=== PATIENT | female | born 1970 | race Caucasian/White ===

== ENCOUNTER 2018-05-08 19:14 | Observation (INO) ==
--- NOTE | 2018-05-08 20:03 | Emergency Department Note ---
Disposition Clinical Impression: Pneumonia Qualifiers: Pneumonia type: due to unspecified organism Laterality: bilateral Lung location: lower lobe of lung Qualified Code(s): J18.1 - Lobar pneumonia, unspecified organism Disposition: Admitted As Inpatient Condition: Fair Time of Disposition: 05:18 SOB HPI - General Chief Complaint: ED Shortness of Breath/Dyspnea Stated Complaint: Cough/sore throat/pnuemonia Time Seen by Provider: 05/08/18 19:43 Source: patient, other (Patient caregivers in room acting as co-historian.) Mode of arrival: ambulatory Limitations: other (Patient has a history of developmental disabilities) Nursing Notes Reviewed: Yes Vital Signs Reviewed: Yes - History of Present Illness Patient is a 48-year-old female presenting to the ED with 3 days of shortness of breath and chest pain. Patient is developmentally disabled and patient caregiver is in the room acting as co-historian. Patient also has past medical history of schizophrenia, bipolar disorder, aortic stent placement, mitral valve prolapse. Caregiver states patient lives in apartment with another individual who received care in their home. Patient states her roommate has been sick with a "cold" recently. Patient is a poor historian and can only minimally cooperate with review of systems questioning. Patiently currently admits to dizziness, hot/cold episodes, neck pain, sore throat, chest pain/shortness of breath/yes unproductive cough. Patient denies headache, back pain, abdominal pain/ nausea/vomiting, hematuria, hematochezia. Caregiver states there was recent episode where patient's Depakote, Risperdal came up missing. We will check valproate levels to assure therapeutic levels. Pt Subjective Complaint: shortness of breath, cough, pain with inspiration, chest pain Context: other (Recent sick contacts) Severity: moderate Consistency/Duration: gradually worsening Improves with: nothing Worsens with: exertion, movement, coughing, inspiration Known history of: other (Mitral valve prolapse) Associated symptoms: Reports: chest pain, pain with inspiration, fever, cough. Denies: sputum production, lower extremity pain, parasthesias, nausea/vomiting, abdominal pain Cough present: Yes Cough Description: Voluntary Cough Frequency: Intermittent Sputum production: No - Related Data Home Medications Medication Instructions Recorded Confirmed Cholecalciferol (D-3) [Vitamin D] 2,000 unit PO DAILY 06/22/17 05/08/18 Divalproex (24 HR) [Depakote ER 1,000 mg PO 1400 06/22/17 05/08/18 (24 HR)] Ferrous Sulfate [Iron] 325 mg PO DAILY 06/22/17 05/08/18 Metoprolol [Lopressor] 25 mg PO BID 06/22/17 05/08/18 Quetiapine Fumarate [Seroquel] 200 mg PO TID 06/22/17 05/08/18 RX: Docusate [Colace] 100 mg PO BID 06/22/17 05/08/18 RX: Lactulose 10 gm PO BID 06/22/17 05/08/18 RX: Melatonin 10 mg PO HS 06/22/17 05/08/18 Sertraline [Zoloft] 100 mg PO HS 06/22/17 05/08/18 Atorvastatin Calcium [Lipitor] 20 mg PO HS 05/08/18 05/08/18 Guaifenesin [Mucus Relief] 400 mg PO BID PRN 05/08/18 05/08/18 Levothyroxine [Synthroid] 50 mcg PO QAM 05/08/18 05/08/18 Omeprazole [PriLOSEC] 20 mg PO DAILY 05/08/18 05/08/18 risperiDONE [RisperDAL] 1 mg PO HS 05/08/18 05/08/18 Allergies Allergy/AdvReac Type Severity Reaction Status Date / Time No Known Allergies Allergy Verified 05/08/18 17:35 Review of Systems: As Per HPI Past Medical History - Past Medical History Medical history: Reports: coronary artery disease, dementia, hyperlipidemia, hypertension, thyroid disease, other Surgical history: Reports: angioplasty/stent - Social History Smoking Status: Never smoker Smokeless Tobacco Status: No Alcohol use: Reports: none Drug use: Reports: none Physical Exam - General Limitations: other (Developmentally disabled) General appearance: alert, in no apparent distress - Head Head exam: atraumatic, normocephalic - Eye Eye exam: Present: normal appearance, PERRL, EOMI. Absent: scleral icterus - Chest Chest inspection: Present: normal inspection, symmetric chest wall rise - Respiratory Respiratory exam: Absent: respiratory distress, accessory muscle use, prolonged expiratory phase - Expanded Respiratory Exam Location: rhonchi: Left, Right, Upper, decreased breath sounds: Left, Right, Lower - Cardiovascular Cardiovascular exam: Present: regular rate, normal rhythm, normal heart sounds, +S1, +S2. Absent: JVD, +S3, +S4 - Abdominal Exam Abdominal exam: Present: soft, Non-Tender, normal bowel sounds. Absent: distention, guarding, rebound, rigidity - Extremities Exam Extremities exam: Present: pedal edema (1+ pitting edema noted in bilateral lower extremities. This stated to be new) - Neurological Exam Neurological exam: Present: alert, oriented X3 - Psychiatric Psychiatric exam: Present: normal affect, normal mood - Skin Skin exam: Present: warm, dry, intact, normal color. Absent: cyanosis, diaphoresis Course Course Narrative: Patient received a chest x-ray at urgent care earlier today and was sent directly from that facility. Chest x-ray concerning for atelectasis and/or scarring. In the setting of no pulmonary interventions, or history of respiratory disease, is concerning for pneumonia. Patient history of coronary artery disease with aortic stent placement, mitral valve prolapse, and new onset pitting edema is concerning for possible CHF exacerbation. Or superimposition of the tube. CBC, CMP, troponin, BNP, EKG/old EKG be obtained to further assess for potential underlying etiologies. We will check valproate level to assure therapeutic levels. - Reevaluation(s) Reevaluation #1: Patient meets sepsis criteria with tachycardia, tachypnea, and a presumed source of infection in the lung We will hold fluids at this time due to concern over fluid overload in the setting of potential CHF exacerbation Lactic acid and blood cultures drawn 750 mg levofloxacin IV started in ED Time: 20:44 Vital Signs Temperature 98.8 F 05/08/18 19:16 Pulse Rate 129 05/08/18 19:16 Respiratory Rate 26 05/08/18 19:16 Blood Pressure 151/85 05/08/18 19:16 O2 Sat by Pulse Oximetry 93 05/08/18 19:16 Temperature 98.2 F 05/09/18 04:09 Pulse Rate 113 05/09/18 04:09 Respiratory Rate 18 05/09/18 04:09 Blood Pressure 133/84 05/09/18 04:09 O2 Sat by Pulse Oximetry 91 05/09/18 04:09 Oxygen Delivery Oxygen Delivery Nasal Cannula Shortness of Breath/Dyspnea - MDM Narrative Medical decision making narrative: CTA of the chest negative for pulmonary embolism. Findings of bilateral lower lobe consolidations consistent with diagnosis of pneumonia. Patient started on 750 mg levofloxacin in the ED. We will obtain influenza screening in order to ascertain possible need for contact precautions while in hospital. Clinical, laboratory and imaging results unlikely for acute CHF exacerbation. We will begin 1 L bolus normal saline for treatment of sepsis. Patient will be admitted to the hospital for further evaluation and management for bilateral pneumonia with Dr. Rouse accepting admission. - Lab Data Lab results reviewed: Yes I reviewed the patient's lab results. Result diagrams: 05/09/18 03:14 05/09/18 03:14 Lab Results 05/08/18 05/08/18 05/08/18 Range/Units 20:23 20:23 20:23 WBC 7.6 (4.3-11.1) K/mcL RBC 3.74 L (3.82-4.97) M/mcL Hgb 11.9 (11.5-15.4) g/dL Hct 35.6 (35.3-44.9) % MCV 95.2 (83.0-100.0) fL MCH 31.8 (28.0-33.3) pg MCHC 33.4 (31.6-35.5) g/dL RDW 13.5 (11.5-14.5) % Plt Count 164 (140-400) K/mcL MPV 10.1 (9.4-12.4) fL Immature Gran % 0.4 (0-4) % Seg Neutrophils % 69.6 % Lymphocytes % 16.9 % Monocytes % 11.0 % Eosinophils % 1.7 % Basophils % 0.4 % Neutrophils # 5.3 (1.6-8.9) K/mcL Lymphocytes # 1.3 (0.6-4.6) K/mcL Monocytes # 0.8 (0.0-1.3) K/mcL Eosinophils # 0.1 (0.0-0.6) K/mcL Basophils # 0.0 (0.0-0.2) K/mcL D-Dimer (0-500) ng/mLFEU Sodium 136 (136-145) mEq/L Potassium 3.9 (3.5-5.1) mEq/L Chloride 100 (98-107) mEq/L Carbon Dioxide 26 (23-29) mEq/L BUN 14 (6-20) mg/dL Creatinine 0.72 (0.60-1.20) mg/dL Est GFR ( Amer) > 60 (> 60) Est GFR (Non-Af Amer) > 60 (> 60) BUN/Creatinine Ratio 19 (6-26) Glucose 136 H (70-105) mg/dL Calculated Osmolality 285 (280-300) Lactic Acid (0.5-2.2) mmol/L Calcium 9.2 (8.6-10.3) mg/dL Total Bilirubin 0.4 (0.3-1.0) mg/dL AST 11 L (13-39) Units/L ALT 13 (7-52) Units/L Alkaline Phosphatase 70 (34-104) Units/L Troponin I < 0.03 (< 0.04) ng/mL B-Natriuretic Peptide 83 (Less than 100) pg/mL Serum Total Protein 7.3 (6.4-8.9) g/dL Albumin 4.1 (3.5-5.7) g/dL Globulin 3.2 (2.4-3.5) g/dL Albumin/Globulin Ratio 1.3 (1.1-2.2) 05/08/18 05/08/18 Range/Units 20:23 20:57 WBC (4.3-11.1) K/mcL RBC (3.82-4.97) M/mcL Hgb (11.5-15.4) g/dL Hct (35.3-44.9) % MCV (83.0-100.0) fL MCH (28.0-33.3) pg MCHC (31.6-35.5) g/dL RDW (11.5-14.5) % Plt Count (140-400) K/mcL MPV (9.4-12.4) fL Immature Gran % (0-4) % Seg Neutrophils % % Lymphocytes % % Monocytes % % Eosinophils % % Basophils % % Neutrophils # (1.6-8.9) K/mcL Lymphocytes # (0.6-4.6) K/mcL Monocytes # (0.0-1.3) K/mcL Eosinophils # (0.0-0.6) K/mcL Basophils # (0.0-0.2) K/mcL D-Dimer 892 H (0-500) ng/mLFEU Sodium (136-145) mEq/L Potassium (3.5-5.1) mEq/L Chloride (98-107) mEq/L Carbon Dioxide (23-29) mEq/L BUN (6-20) mg/dL Creatinine (0.60-1.20) mg/dL Est GFR ( Amer) (> 60) Est GFR (Non-Af Amer) (> 60) BUN/Creatinine Ratio (6-26) Glucose (70-105) mg/dL Calculated Osmolality (280-300) Lactic Acid 1.9 (0.5-2.2) mmol/L Calcium (8.6-10.3) mg/dL Total Bilirubin (0.3-1.0) mg/dL AST (13-39) Units/L ALT (7-52) Units/L Alkaline Phosphatase (34-104) Units/L Troponin I (< 0.04) ng/mL B-Natriuretic Peptide (Less than 100) pg/mL Serum Total Protein (6.4-8.9) g/dL Albumin (3.5-5.7) g/dL Globulin (2.4-3.5) g/dL Albumin/Globulin Ratio (1.1-2.2) - Radiology Data Radiology results reviewed: Yes I reviewed the patient's radiology results. Chest CTA 05/08/18 21:27 IMPRESSION: Study is very limited for pulmonary embolism. No central or lobar emboli suspected. Central bronchial wall thickening as well as centrilobular ill-defined punctate nodules, greatest in the right upper lobe. Findings likely represent infectious airways disease. Mild consolidation within posterior lower lobes, atelectasis or pneumonia. D/ / Jeanie Sandhu Cha, MD / Jeanie Sandhu Cha, MD Interpreting Provider: Jeanie Sandhu Cha, MD Chest CTA 05/08/18 21:27 IMPRESSION: Study is very limited for pulmonary embolism. No central or lobar emboli suspected. Central bronchial wall thickening as well as centrilobular ill-defined punctate nodules, greatest in the right upper lobe. Findings likely represent infectious airways disease. Mild consolidation within posterior lower lobes, atelectasis or pneumonia. D/ / Jeanie Sandhu Cha, MD / Jeanie Sandhu Cha, MD Interpreting Provider: Jeanie Sandhu Cha, MD - EKG Data EKG attestation: Yes I reviewed and interpreted this EKG. EKG results narrative: Patient EKG shows a sinus tachycardia with a ventricular rate of 110 bpm, NE interval of 133 ms, QRS duration of 80 ms, QT/QTc interval of 316/428 ms respectively. There are no significant ST segment elevations or depressions, pathologic Q waves, abnormal T-wave inversions, or any other signs of acute ischemic change. At this time there is no previous EKG available for comparison.
[2018-05-08 20:46] LABS: Basophils % 0.4 %; Eosinophils # 0.1 K/mcL (0.0-0.6); Eosinophils % 1.7 %; Hematocrit 35.6 % (35.3-44.9); Hemoglobin 11.9 g/dL (11.5-15.4); Immature Granulocytes % 0.4 % (0-4); Lymphocytes # 1.3 K/mcL (0.6-4.6); Lymphocytes % 16.9 %; Mean Corpuscular HGB Conc 33.4 g/dL (31.6-35.5); Mean Corpuscular Hemoglobin 31.8 pg (28.0-33.3); Mean Corpuscular Volume 95.2 fL (83.0-100.0); Mean Platelet Volume 10.1 fL (9.4-12.4); Monocytes # 0.8 K/mcL (0.0-1.3); Neutrophils # 5.3 K/mcL (1.6-8.9); Platelet Count 164 K/mcL (140-400); Red Blood Count 3.74 M/mcL (3.82-4.97); Red Cell Distribution Width 13.5 % (11.5-14.5); Segmented Neutrophils % 69.6 %
[2018-05-08] MEDS ORDERED: Levofloxacin 750 MG/150 ML 750 MG/150 ML BAG IVPB ONE (20:47)
[2018-05-08] MEDS ORDERED: Ipratropium/Albuterol Neb 3 ML IH ONE (21:04)
[2018-05-08 21:07] LABS: Troponin I < 0.03 ng/mL (< 0.04)
[2018-05-08 21:08] LABS: Alanine Aminotransferase 13 Units/L (7-52); Albumin 4.1 g/dL (3.5-5.7); Albumin/Globulin Ratio 1.3 (1.1-2.2); Alkaline Phosphatase 70 Units/L (34-104); Aspartate Amino Transferase 11 Units/L (13-39); BUN/Creatinine Ratio 19 (6-26); Bilirubin,Total 0.4 mg/dL (0.3-1.0); Blood Urea Nitrogen 14 mg/dL (6-20); Calcium 9.2 mg/dL (8.6-10.3); Carbon Dioxide 26 mEq/L (23-29); Chloride 100 mEq/L (98-107); Globulin 3.2 g/dL (2.4-3.5); Glucose 136 mg/dL (70-105); Osmolality,Calculated 285 (280-300); Potassium 3.9 mEq/L (3.5-5.1); Sodium 136 mEq/L (136-145); Total Protein 7.3 g/dL (6.4-8.9); eGFR For Non-African Americans > 60 (> 60)
[2018-05-08] MEDS ORDERED: Isovue-370 500 ML BOTTLE IVP ONE (21:27)
--- NOTE | 2018-05-08 22:43 | Emergency Department Note ---
Disposition Clinical Impression: Pneumonia Qualifiers: Pneumonia type: due to unspecified organism Laterality: bilateral Lung location: lower lobe of lung Qualified Code(s): J18.1 - Lobar pneumonia, unspecified organism Disposition: Admitted As Inpatient Condition: Fair General Adult HPI - General Chief complaint: ED Shortness of Breath/Dyspnea Stated complaint: Cough/sore throat/pnuemonia Time Seen by Provider: 05/08/18 19:43 Source: patient, other (Patient caregivers in room acting as co-historian.) Mode of arrival: ambulatory Limitations: other (Developmentally disabled) Nursing Notes Reviewed: Yes Vital Signs Reviewed: Yes - History of Present Illness Pain Scale: 0 - Related Data Home Medications Medication Instructions Recorded Confirmed Cholecalciferol (D-3) [Vitamin D] 2,000 unit PO DAILY 06/22/17 05/08/18 Divalproex (24 HR) [Depakote ER 1,000 mg PO 1400 06/22/17 05/08/18 (24 HR)] Docusate [Colace] 100 mg PO BID 06/22/17 05/08/18 Ferrous Sulfate [Iron] 325 mg PO DAILY 06/22/17 05/08/18 Lactulose 10 gm PO BID 06/22/17 05/08/18 Melatonin 10 mg PO HS 06/22/17 05/08/18 Metoprolol [Lopressor] 25 mg PO BID 06/22/17 05/08/18 Quetiapine Fumarate [Seroquel] 200 mg PO TID 06/22/17 05/08/18 Sertraline [Zoloft] 100 mg PO HS 06/22/17 05/08/18 Atorvastatin Calcium [Lipitor] 20 mg PO HS 05/08/18 05/08/18 Guaifenesin [Mucus Relief] 400 mg PO BID PRN 05/08/18 05/08/18 Levothyroxine [Synthroid] 50 mcg PO QAM 05/08/18 05/08/18 Omeprazole [PriLOSEC] 20 mg PO DAILY 05/08/18 05/08/18 risperiDONE [RisperDAL] 1 mg PO HS 05/08/18 05/08/18 Allergies Allergy/AdvReac Type Severity Reaction Status Date / Time No Known Allergies Allergy Verified 05/08/18 17:35 Past Medical History - Past Medical History Medical history: Reports: coronary artery disease, dementia, hyperlipidemia, hypertension, thyroid disease, other Surgical history: Reports: angioplasty/stent - Social History Smoking Status: Never smoker Smokeless Tobacco Status: No Alcohol use: Reports: none Drug use: Reports: none Physical Exam - General Limitations: other (Developmentally disabled) General appearance: alert, in no apparent distress Course Vital Signs Temperature 98.8 F 05/08/18 19:16 Pulse Rate 129 05/08/18 19:16 Respiratory Rate 26 05/08/18 19:16 Blood Pressure 151/85 05/08/18 19:16 O2 Sat by Pulse Oximetry 93 05/08/18 19:16 Temperature 98.2 F 05/09/18 04:09 Pulse Rate 113 05/09/18 04:09 Respiratory Rate 18 05/09/18 04:09 Blood Pressure 133/84 05/09/18 04:09 O2 Sat by Pulse Oximetry 91 05/09/18 04:09 Oxygen Delivery Oxygen Delivery Nasal Cannula Medical Decision Making - Medical Records Medical records reviewed: Yes I reviewed the patient's medical records. - Lab Data Lab results reviewed: Yes I reviewed the patient's lab results. Result diagrams: 05/09/18 03:14 05/09/18 03:14 Lab Results 05/08/18 05/08/18 05/08/18 Range/Units 20:23 20:23 20:23 WBC 7.6 (4.3-11.1) K/mcL RBC 3.74 L (3.82-4.97) M/mcL Hgb 11.9 (11.5-15.4) g/dL Hct 35.6 (35.3-44.9) % MCV 95.2 (83.0-100.0) fL MCH 31.8 (28.0-33.3) pg MCHC 33.4 (31.6-35.5) g/dL RDW 13.5 (11.5-14.5) % Plt Count 164 (140-400) K/mcL MPV 10.1 (9.4-12.4) fL Immature Gran % 0.4 (0-4) % Seg Neutrophils % 69.6 % Lymphocytes % 16.9 % Monocytes % 11.0 % Eosinophils % 1.7 % Basophils % 0.4 % Neutrophils # 5.3 (1.6-8.9) K/mcL Lymphocytes # 1.3 (0.6-4.6) K/mcL Monocytes # 0.8 (0.0-1.3) K/mcL Eosinophils # 0.1 (0.0-0.6) K/mcL Basophils # 0.0 (0.0-0.2) K/mcL D-Dimer (0-500) ng/mLFEU Sodium 136 (136-145) mEq/L Potassium 3.9 (3.5-5.1) mEq/L Chloride 100 (98-107) mEq/L Carbon Dioxide 26 (23-29) mEq/L BUN 14 (6-20) mg/dL Creatinine 0.72 (0.60-1.20) mg/dL Est GFR ( Amer) > 60 (> 60) Est GFR (Non-Af Amer) > 60 (> 60) BUN/Creatinine Ratio 19 (6-26) Glucose 136 H (70-105) mg/dL Calculated Osmolality 285 (280-300) Lactic Acid (0.5-2.2) mmol/L Calcium 9.2 (8.6-10.3) mg/dL Total Bilirubin 0.4 (0.3-1.0) mg/dL AST 11 L (13-39) Units/L ALT 13 (7-52) Units/L Alkaline Phosphatase 70 (34-104) Units/L Troponin I < 0.03 (< 0.04) ng/mL B-Natriuretic Peptide 83 (Less than 100) pg/mL Serum Total Protein 7.3 (6.4-8.9) g/dL Albumin 4.1 (3.5-5.7) g/dL Globulin 3.2 (2.4-3.5) g/dL Albumin/Globulin Ratio 1.3 (1.1-2.2) 05/08/18 05/08/18 Range/Units 20:23 20:57 WBC (4.3-11.1) K/mcL RBC (3.82-4.97) M/mcL Hgb (11.5-15.4) g/dL Hct (35.3-44.9) % MCV (83.0-100.0) fL MCH (28.0-33.3) pg MCHC (31.6-35.5) g/dL RDW (11.5-14.5) % Plt Count (140-400) K/mcL MPV (9.4-12.4) fL Immature Gran % (0-4) % Seg Neutrophils % % Lymphocytes % % Monocytes % % Eosinophils % % Basophils % % Neutrophils # (1.6-8.9) K/mcL Lymphocytes # (0.6-4.6) K/mcL Monocytes # (0.0-1.3) K/mcL Eosinophils # (0.0-0.6) K/mcL Basophils # (0.0-0.2) K/mcL D-Dimer 892 H (0-500) ng/mLFEU Sodium (136-145) mEq/L Potassium (3.5-5.1) mEq/L Chloride (98-107) mEq/L Carbon Dioxide (23-29) mEq/L BUN (6-20) mg/dL Creatinine (0.60-1.20) mg/dL Est GFR ( Amer) (> 60) Est GFR (Non-Af Amer) (> 60) BUN/Creatinine Ratio (6-26) Glucose (70-105) mg/dL Calculated Osmolality (280-300) Lactic Acid 1.9 (0.5-2.2) mmol/L Calcium (8.6-10.3) mg/dL Total Bilirubin (0.3-1.0) mg/dL AST (13-39) Units/L ALT (7-52) Units/L Alkaline Phosphatase (34-104) Units/L Troponin I (< 0.04) ng/mL B-Natriuretic Peptide (Less than 100) pg/mL Serum Total Protein (6.4-8.9) g/dL Albumin (3.5-5.7) g/dL Globulin (2.4-3.5) g/dL Albumin/Globulin Ratio (1.1-2.2) - Radiology Data Radiology results reviewed: Yes I reviewed the patient's radiology results. Chest CTA 05/08/18 21:27 IMPRESSION: Study is very limited for pulmonary embolism. No central or lobar emboli suspected. Central bronchial wall thickening as well as centrilobular ill-defined punctate nodules, greatest in the right upper lobe. Findings likely represent infectious airways disease. Mild consolidation within posterior lower lobes, atelectasis or pneumonia. D/ / Jeanie Sandhu Cha, MD / Jeanie Sandhu Cha, MD Interpreting Provider: Jeanie Sandhu Cha, MD - EKG Data EKG #1 EKG attestation: Yes I reviewed and interpreted this EKG. EKG results narrative: EKG shows sinus tachycardia with a rate of 110. Probable left atrial enlargement. No ST segment elevation or depression. No arrhythmia or ectopy. Critical Care Time Critical Care Time: Yes Total Critical Care Time: 35 Attestation: Critical care performed: Time is exclusive of separately billable procedures. Time includes: direct patient care, patient reassessment, coordination of patient care, interpretation of data (laboratory data, radiology data, and respiratory data), review of patient's medical records, medical consultation and documentation of patient care. Procedures included in critical care time: Procedures excluded from critical care time: Attestation Statement - Attestation Attestation: I, Mike Glasgow MD, personally evaluated this patient and discussed their management with the resident physician. I reviewed the resident's note and agree with the documented findings, medical decision making, and plan of care. 48-year-old female with history of MRDD who lives in an apartment with a roommate. 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 Patient developed a cough 3 days ago. [employer] reports they got her some cough drops which did not seem to help. Today she started complaining of a sore throat so they took her to an urgent care. She had a chest x-ray and they were concerned about pneumonia and referred her to the emergency department. There has not been any fever. Some mild shortness of breath. No prior history of breathing problems. On examination patient is a well-developed well-nourished female in no acute distress. She is alert and cooperative. No cyanosis or diaphoresis. Breath sounds are equal bilaterally. Patient does have expiratory wheezes and some rales over the left upper anteriorly. Heart regular with a mild tachycardia. Abdomen soft and nontender. There is 1+ pedal edema bilaterally. EKG shows sinus tachycardia with a ventricular rate of 110. No ST segment elevation or depression. No ectopy. CTA of the chest showed no definite pulmonary embolism but scattered areas consistent with pneumonia. Labs reviewed. Antibiotics initiated. Blood cultures obtained. The hospitalist, Dr. Rouse, was consulted and accepted admission of the patient.
[2018-05-08] MEDS ORDERED: 0.9 % Sodium Chloride 1,000 ML IVC ONE (22:55)
--- NOTE | 2018-05-09 01:50 | Internal Med History&Physical ---
Date of Encounter: 05/09/18 Time of Encounter: 01:48 Internal Medicine - H&P: HPI Chief complaint: Cough History of present illness: Ms. Garrett is a 48 year old female with a past medical history of MRDD who presents with 3 day history of cough patient currently resides in an apartment with a roommate and has a 24-hour sawdust drier. Her sawdust drier reports that the treated her cough some cough drops which did not seem to help. Patient reported sore throat earlier today so she was taken to urgent care where a chest x-ray was concerning for pneumonia. No reports of fever, chills or chest pain. Initial vitals on admission were Laboratory workup was notable for a normal white count, however, patient was noted to have an elevated d-dimer of 892. CT scan Was limited but did not show any central or lobar emboli. There was concern for possible pneumonia versus infectious airway disease. Patient was started on levofloxacin in the ED. Past Med Surg Social Fam HX - Past Medical History Medical history: coronary artery disease, dementia, hyperlipidemia, hypertension, thyroid disease, other Additional medical history: MRDD. TBI. MVP - Past Surgical History Surgical History: angioplasty/stent Additional surgical history: aortic stent - Social History Smoking Status: Never smoker Smokeless Tobacco Status: No Alcohol use: none Drug use: none Internal Medicine - H&P: Meds Cholecalciferol (D-3) [Vitamin D] 2,000 unit PO DAILY 06/22/17 [History] Divalproex (24 HR) [Depakote ER (24 HR)] 1,000 mg PO 1400 06/22/17 [History] Docusate [Colace] 100 mg PO BID 06/22/17 [History] Ferrous Sulfate [Iron] 325 mg PO DAILY 06/22/17 [History] Lactulose 10 gm PO BID 06/22/17 [History] Melatonin 10 mg PO HS 06/22/17 [History] Metoprolol [Lopressor] 25 mg PO BID 06/22/17 [History] Quetiapine Fumarate [Seroquel] 200 mg PO TID 06/22/17 [History] Sertraline [Zoloft] 100 mg PO HS 06/22/17 [History] Atorvastatin Calcium [Lipitor] 20 mg PO HS 05/08/18 [History] Guaifenesin [Mucus Relief] 400 mg PO BID PRN 05/08/18 [History] Levothyroxine [Synthroid] 50 mcg PO QAM 05/08/18 [History] Omeprazole [PriLOSEC] 20 mg PO DAILY 05/08/18 [History] risperiDONE [RisperDAL] 1 mg PO HS 05/08/18 [History] Allergy/AdvReac Type Severity Reaction Status Date / Time No Known Allergies Allergy Verified 05/08/18 17:35 All Systems PM: A 10-system review of systems was performed and is negative for pertinent findings except as documented above in the HPI. - Constitutional Constitutional: no chills, no fever(s), no night sweats - EENT Eyes: no change in vision, no discharge, no pain, no photophobia Ears: no ear discharge, no ear pain, no tinnitus Nose, mouth and throat: no dysphagia, no nasal discharge, no neck pain, no sore throat - Cardiovascular Cardiovascular ROS IM: no chest pain, no diaphoresis, no dyspnea, no lightheadedness, no palpitations, no syncope - Respiratory Respiratory: no cough, no dyspnea, no wheezing, no excessive phlegm production - Gastrointestinal Gastrointestinal: no abdominal pain, no diarrhea, no hematemesis, no hematochezia, no melena, no nausea, no vomiting - Genitourinary Genitourinary: no change in urinary stream, no dysuria, no flank pain, no hematuria - Musculoskeletal Musculoskeletal ROS IM: no numbness, no tingling - Integumentary Integumentary IM: no rash, no unusual bruising - Neurological Neurological ROS: no confusion, no convulsions, no focal weakness, no numbness, no tingling, no tremor(s) - Hematologic/Lymphatic Hematologic/Lymphatic: no easy bruising - Constitutional Vitals: Temp Pulse Resp BP Pulse Ox 98.0 F 104 16 119/69 90 05/09/18 00:45 05/09/18 00:45 05/09/18 00:45 05/09/18 00:45 05/09/18 00:45 Exam: General: Alert and oriented Skin:Normal color, no rash, no lesions. HEENT:EOM, pupils equal, round and reactive. Cardiovascular:Normal S1 & S2, no rubs, murmurs or gallops. No JVD. Pulse regular. Lungs:Normal breath sounds, no wheezes or crackles. Abdomen:Soft, non-tender, no rigidity. Extremities:No deformity, no edema or tenderness, no joint swelling or clubbing. Neurological:Normal cognition and motor skills. Pulses:Carotid and radial pulses normal +2. Rest of the physical exam is non contributory Internal Med - H&P Results - Labs CBC & Chem 7: 05/09/18 03:14 05/09/18 03:14 Labs: Short CBC 05/08/18 Range/Units 20:23 WBC 7.6 (4.3-11.1) K/mcL Hgb 11.9 (11.5-15.4) g/dL Hct 35.6 (35.3-44.9) % Plt Count 164 (140-400) K/mcL Neutrophils # 5.3 (1.6-8.9) K/mcL BMP 05/08/18 20:23 Sodium 136 Potassium 3.9 Chloride 100 Carbon Dioxide 26 BUN 14 Creatinine 0.72 Glucose 136 H Calcium 9.2 Cardiac Enzymes 05/08/18 Range/Units 20:23 Troponin I < 0.03 (< 0.04) ng/mL Liver Function 05/08/18 Range/Units 20:23 Total Bilirubin 0.4 (0.3-1.0) mg/dL AST 11 L (13-39) Units/L ALT 13 (7-52) Units/L Alkaline Phosphatase 70 (34-104) Units/L Albumin 4.1 (3.5-5.7) g/dL - Impressions ITS Impressions Chest CTA 05/08/18 21:27 IMPRESSION: Study is very limited for pulmonary embolism. No central or lobar emboli suspected. Central bronchial wall thickening as well as centrilobular ill-defined punctate nodules, greatest in the right upper lobe. Findings likely represent infectious airways disease. Mild consolidation within posterior lower lobes, atelectasis or pneumonia. D/ / Jeanie Sandhu Cha, MD / Jeanie Sandhu Cha, MD Interpreting Provider: Jeanie Sandhu Cha, MD - Assessment and plan (1) Community acquired pneumonia Current Visit: Yes Status: Acute Assessment and plan: Patient admitted for 3 day history of cough and sore throat. Patient mildly tachycardic requiring 3 L nasal cannula and maintaining saturation in the low 90s. Lung sounds rhonchorous in the upper lung bauman. No evidence of leukocytosis on labs. Chest x-ray performed at urgent care was concerning for pneumonia. CTA performed here shows no evidence of PE with central bronchial wa ll thickening as well as centrilobular ill-defined nodules likely representing infectious airway disease. There was mild consolidation within the posterior lower lobes possibly secondary to atelectasis versus pneumonia. Patient received levofloxacin in the ED. Patient stable from a respiratory standpoint. -Continue levofloxacin for possible community-acquired pneumonia versus acute bronchitis. -Follow-up blood cultures. -Follow-up respiratory infectious panel Qualifiers: Lung location: unspecified part of lung Qualified Code(s): J18.9 - Pneumonia, unspecified organism (2) Cough Current Visit: No Status: Acute Assessment and plan: Nonproductive cough. Treat symptomatically. (3) Hypothyroidism Current Visit: Yes Status: Acute Assessment and plan: Continue levothyroxin Qualifiers: Hypothyroidism type: unspecified Qualified Code(s): E03.9 - Hypothyroidism, unspecified (4) Depression Current Visit: Yes Status: Acute Assessment and plan: Continue with sertraline Qualifiers: Depression Type: unspecified Qualified Code(s): F32.9 - Major depressive disorder, single episode, unspecified (5) DVT prophylaxis Current Visit: Yes Status: Acute Assessment and plan: Subcutaneous heparin - Time Spent With Patient Total time spent is greater than 50% in coordination of care (as documented) at patient's floor/unit and/or counseling patient:
[2018-05-09] MEDS ORDERED: Naloxone 0.4 MG/ML INJ IVP PRN (01:57)
[2018-05-09] MEDS ORDERED: GuaiFENesin Liq 200 MG/10 ML UDC PO PRN (03:39)
[2018-05-09 04:19] LABS: Basophils % 0.3 %; Eosinophils # 0.1 K/mcL (0.0-0.6); Eosinophils % 1.8 %; Immature Granulocytes % 0.4 % (0-4); Lymphocytes # 1.3 K/mcL (0.6-4.6); Lymphocytes % 19.1 %; Mean Corpuscular HGB Conc 32.4 g/dL (31.6-35.5); Mean Corpuscular Hemoglobin 31.2 pg (28.0-33.3); Mean Corpuscular Volume 96.3 fL (83.0-100.0); Mean Platelet Volume 10.3 fL (9.4-12.4); Monocytes # 0.7 K/mcL (0.0-1.3); Monocytes % 10.5 %; Neutrophils # 4.7 K/mcL (1.6-8.9); Platelet Count 169 K/mcL (140-400); Red Blood Count 3.53 M/mcL (3.82-4.97); Red Cell Distribution Width 13.7 % (11.5-14.5); Segmented Neutrophils % 67.9 %
[2018-05-09 04:39] LABS: Alanine Aminotransferase 11 Units/L (7-52); Albumin 3.7 g/dL (3.5-5.7); Albumin/Globulin Ratio 1.2 (1.1-2.2); Alkaline Phosphatase 66 Units/L (34-104); Aspartate Amino Transferase 11 Units/L (13-39); BUN/Creatinine Ratio 17 (6-26); Bilirubin,Total 0.3 mg/dL (0.3-1.0); Blood Urea Nitrogen 11 mg/dL (6-20); Calcium 8.6 mg/dL (8.6-10.3); Carbon Dioxide 27 mEq/L (23-29); Chloride 103 mEq/L (98-107); Glucose 114 mg/dL (70-105); Osmolality,Calculated 286 (280-300); Potassium 4.1 mEq/L (3.5-5.1); Sodium 138 mEq/L (136-145); Total Protein 6.7 g/dL (6.4-8.9); eGFR For Non-African Americans > 60 (> 60)
[2018-05-09 05:01] LABS: Adenovirus Not Detected (Not Detect); Bordetella Pertussis Not Detected (Not Detect); Chlamydophila pneumoniae Not Detected (Not Detect); Coronavirus 229E Not Detected (Not Detect); Coronavirus HKU1 Not Detected (Not Detect); Coronavirus NL63 Not Detected (Not Detect); Coronavirus OC43 Not Detected (Not Detect); Human Metapneumovirus Not Detected (Not Detect); Human Rhinovirus/Enterovirus Not Detected (Not Detect); Influenza A Subtype 2009 H1 Not Detected (Not Detect); Influenza A Untypeable Not Detected (Not Detect); Influenza B Not Detected (Not Detect); Mycoplasma pneumoniae DETECTED (Not Detect); Parainfluenza Virus 1 Not Detected (Not Detect); Parainfluenza Virus 2 Not Detected (Not Detect); Parainfluenza Virus 3 Not Detected (Not Detect); Parainfluenza Virus 4 Not Detected (Not Detect); Respiratory Syncytial Virus Not Detected (Not Detect)
[2018-05-09] MEDS: *HR* Heparin 5,000 UNIT/ML VIAL SQ SCH ×3 (06:00→20:26)
[2018-05-09] MEDS: Lactulose Oral Soln 20 GM/30 ML UDC PO SCH ×2 (08:12→20:26)
[2018-05-09] MEDS: Cholecalciferol (D-3) 1,000 UNIT TABLET PO SCH (08:13)
[2018-05-09] MEDS: Levofloxacin 750 MG/150 ML 750 MG/150 ML BAG IVPB SCH (08:13)
--- NOTE | 2018-05-09 09:18 | Electrocardiograph Report ---
[place] [id number] Test Date: 2018-05-08 Pat Name: Marlena Garrett Department: EXAMC3 Room: 2NE18 Gender: F Lean Sensei: : 1970 Requested By: Justin Robledo Order Number: [id number] Reading MD: Pierce Sneed Measurements Intervals [place] Rate: 110 P: 54 SD: 133 QRS: 53 QRSD: 80 T: 7 QT: 316 QTc: 428 Interpretive Statements Sinus tachycardia Probable left atrial enlargement Electronically Signed On 05-09-2018 9:16:34 EST by Pierce Sneed
[2018-05-09] MEDS ORDERED: Ipratropium/Albuterol Neb 3 ML IH ONE (10:23)
[2018-05-09] MEDS ORDERED: Ipratropium/Albuterol Neb 3 ML IH PRN (10:23)
--- NOTE | 2018-05-09 10:25 | Event Note ---
Date of Encounter: 05/09/18 Time of Encounter: 10:20 Seen and examined at the bedside 48 F with MRDD who is admitted and being managed for Mycoplasma PNA and hypoxia due to PNA She is complaining of pleuritic chest pain , she is still coughing O2 requirement is 2L at this time Physical Exam VSS-Tachycardic, 94% on 2L o2 at rest Gen: Morbidly obese, pleasant, normal speech HEENT: not cyanotic, not pale, moist oral mucosa Chest: No chest wall tenderness Resp: Diffuse bilateral crackles, with associated wheezing Heart: S1, S2, tachy, no m/g/r Abdomen: Obese, not tender, no palpably enlarged organs Extremities: No edema Neuro: AAOX3, no gross deficits Psych: Appropriate affect Labs reviewed and noted Assessment and plan Mycoplasma pneumonia-continue Levaquin 750 IV daily, and DuoNeb's when necessary for shortness of breath or wheezing Hypertensioncontinue home medications MRDDcontinue home medications Hypothyroidismcontinue home medications Hypoxiawean as tolerated DVT prophylaxis with SQ heparin.
[2018-05-09] MEDS: Divalproex (24 HR) 500 MG TABLET PO SCH (15:54)
[2018-05-09] MEDS: risperiDONE 1 MG TABLET PO SCH (20:25)
[2018-05-09] MEDS: Melatonin 3 MG TABLET PO SCH (20:25)
[2018-05-10 03:42] LABS: Basophils % 0.4 %; Eosinophils # 0.5 K/mcL (0.0-0.6); Eosinophils % 7.3 %; Hemoglobin 11.4 g/dL (11.5-15.4); Immature Granulocytes % 0.9 % (0-4); Lymphocytes # 1.9 K/mcL (0.6-4.6); Lymphocytes % 27.6 %; Mean Corpuscular HGB Conc 32.6 g/dL (31.6-35.5); Mean Corpuscular Hemoglobin 31.6 pg (28.0-33.3); Monocytes # 0.6 K/mcL (0.0-1.3); Monocytes % 9.3 %; Neutrophils # 3.7 K/mcL (1.6-8.9); Platelet Count 190 K/mcL (140-400); Red Blood Count 3.61 M/mcL (3.82-4.97); Red Cell Distribution Width 13.5 % (11.5-14.5); Segmented Neutrophils % 54.5 %
[2018-05-10 04:01] LABS: BUN/Creatinine Ratio 18 (6-26); Blood Urea Nitrogen 13 mg/dL (6-20); Calcium 9.1 mg/dL (8.6-10.3); Carbon Dioxide 27 mEq/L (23-29); Chloride 102 mEq/L (98-107); Glucose 109 mg/dL (70-105); Osmolality,Calculated 283 (280-300); Sodium 136 mEq/L (136-145); eGFR For Non-African Americans > 60 (> 60)
[2018-05-10] MEDS: *HR* Heparin 5,000 UNIT/ML VIAL SQ SCH ×3 (06:25→21:00)
[2018-05-10] MEDS: Cholecalciferol (D-3) 1,000 UNIT TABLET PO SCH (07:45)
[2018-05-10] MEDS: Levofloxacin 750 MG/150 ML 750 MG/150 ML BAG IVPB SCH (07:45)
[2018-05-10] MEDS: Lactulose Oral Soln 20 GM/30 ML UDC PO SCH ×2 (07:45→20:03)
--- NOTE | 2018-05-10 10:24 | Internal Med Progress Note ---
Hospitalist Progress Note - Encounter Date of Encounter: 05/10/18 Time of Encounter: 10:23 - Subjective Interval History: Seen and examined at the bedside 48 F with MRDD who is admitted and being managed for Mycoplasma PNA and hypoxia due to PNA She has no new complains Hypoxemia has resolved She walked in the floors without requirement for O2 and was deemed for discharge, however, her caregivers state they wont be available till tomorrow 05/11 She is otherwise stable - Exam Vitals: Temp Pulse Resp BP Pulse Ox 97.6 F 73 20 120/82 91 05/10/18 07:32 05/10/18 07:32 05/10/18 07:32 05/10/18 07:32 05/10/18 07:32 Exam: VSS Gen: Morbidly obese, pleasant, normal speech HEENT: not cyanotic, not pale, moist oral mucosa Chest: No chest wall tenderness Resp: Rhonchi, worse in MIKE. No wheezing Heart: S1, S2, RRR, no m/g/r Abdomen: Obese, not tender, no palpably enlarged organs Extremities: No edema Neuro: AAOX3, no gross deficits Psych: Appropriate affect - Assessment and Plan (1) Community acquired pneumonia Current Visit: Yes Status: Acute Assessment and Plan: Bilateral PNA due to Mycoplasma RIP showed Mycoplasma Continue Levaquin 750mg IV, transition to po am Blood cultures prelim negative Continue other supportive care (2) Hypothyroidism Current Visit: Yes Status: Chronic Assessment and Plan: continue home meds (3) DVT prophylaxis Current Visit: Yes Status: Acute Assessment and Plan: Subcutaneous heparin (4) Depression Current Visit: Yes Status: Chronic Assessment and Plan: Continue home meds (5) Hypoxia Current Visit: Yes Status: Resolved Assessment and Plan: resolved continue to monitor - Time Spent with Patient Total time spent is greater than 50% in coordination of care (as documented) at patient's floor/unit and/or counseling patient: Plan of Care Discussed with: nurse Internal Medicine: Result - Labs CBC & Chem 7: 05/10/18 03:12 05/10/18 03:12 Labs: Short CBC 05/10/18 Range/Units 03:12 WBC 6.8 (4.3-11.1) K/mcL Hgb 11.4 L (11.5-15.4) g/dL Hct 35.0 L (35.3-44.9) % Plt Count 190 (140-400) K/mcL Neutrophils # 3.7 (1.6-8.9) K/mcL BMP 05/10/18 03:12 Sodium 136 Potassium 4.0 Chloride 102 Carbon Dioxide 27 BUN 13 Creatinine 0.72 Glucose 109 H Calcium 9.1 - ABG Interpretation ABG results: PT/INR, D-dimer D-Dimer 892 ng/mLFEU (0-500) H 05/08/18 20:23 Consult Discharge Plan - Plan Referrals: Carey Cleary, RESIDENT MEDICAL OFFICER [Primary Care Provider] - 05/17/18 11:00 am Prescriptions: levoFLOXacin [Levaquin] 750 mg PO DAILY 5 Days #5 tablet (1) Community acquired pneumonia Qualifiers: Lung location: unspecified part of lung Qualified Code(s): J18.9 - Pneumonia, unspecified organism (2) Hypothyroidism Qualifiers: Hypothyroidism type: unspecified Qualified Code(s): E03.9 - Hypothyroidism, unspecified (4) Depression Qualifiers: Depression Type: unspecified Qualified Code(s): F32.9 - Major depressive disorder, single episode, unspecified
[2018-05-10] MEDS: Divalproex (24 HR) 500 MG TABLET PO SCH (13:43)
[2018-05-10] MEDS: Melatonin 3 MG TABLET PO SCH (20:02)
[2018-05-10] MEDS: risperiDONE 1 MG TABLET PO SCH (20:02)
[2018-05-11] MEDS: *HR* Heparin 5,000 UNIT/ML VIAL SQ SCH ×2 (05:46→15:04)
[2018-05-11 06:40] VITALS: BP 116/82
[2018-05-11] MEDS ORDERED: levoFLOXacin 750 MG TABLET PO SCH (09:00)
[2018-05-11] MEDS: Lactulose Oral Soln 20 GM/30 ML UDC PO SCH (09:59)
[2018-05-11] MEDS: Cholecalciferol (D-3) 1,000 UNIT TABLET PO SCH (09:59)
--- NOTE | 2018-05-11 10:11 | Discharge Summary ---
- NOTES TO OUTPATIENT PROVIDER Notes to Outpatient Provider: 48 F with MRDD, hypothyroidism, HTN who was admitted to observation for Mycoplasma PNA and Hypoxia. She has remained afberile and not spetic. Blood cultures negative. Hypoxia has resolved and patient wa ambulated and did not qualify for home O2. She was managed with duonebs and antibiotics, she is discharged on 5 days of Levaquin to complete 7 days of therapy. her other chronic medical conditions are stable. Follow up with PCP and Psych /MD at [facility], [place]. Orders not resulted at time of discharge: Pending orders 05/08/18 20:23 Valproate Total & Free Stat 05/08/18 20:57 Culture,Blood [BC] Stat Date of Encounter: 05/11/18 Time of Encounter: 10:11 - Discharge Diagnosis (1) Community acquired pneumonia Priority: Primary Status: Acute Qualifiers: Laterality: right Lung location: unspecified part of lung Qualified Code(s): J18.9 - Pneumonia, unspecified organism (2) Hypothyroidism Priority: Secondary Status: Chronic Qualifiers: Hypothyroidism type: unspecified Qualified Code(s): E03.9 - Hypothyroidism, unspecified (3) DVT prophylaxis Priority: Primary Status: Resolved (4) Depression Priority: Secondary Status: Chronic Qualifiers: Depression Type: unspecified Qualified Code(s): F32.9 - Major depressive disorder, single episode, unspecified (5) Hypoxia Priority: Primary Status: Resolved Hospital course: 48 F with MRDD, hypothyroidism, HTN who was admitted to observation for Mycoplasma PNA and Hypoxia. She has remained afberile and not spetic. Blood cultures negative. RIP showed Mycoplasma. Influeza screen was negative. CBC and Chem unremarkable Hypoxia has resolved and patient was ambulated and did not qualify for home O2. She was managed with duonebs and antibiotics, she is discharged on 5 days of Levaquin to complete 7 days of therapy. her other chronic medical conditions are stable. Discharged back to [facility], [place] in clinically stable condition Follow up with PCP and Psych /MD at [facility] [place]. Discharge discussed with: patient, family, nurse - Time Spent with Patient Total time spent providing and/or coordinating discharge services: Less than 30 minutes - Discharge Medications Prescriptions: levoFLOXacin [Levaquin] 750 mg PO DAILY 5 Days #5 tablet Home Medications: Cholecalciferol (D-3) [Vitamin D] 2,000 unit PO DAILY 06/22/17 [History] Divalproex (24 HR) [Depakote ER (24 HR)] 1,000 mg PO 1400 06/22/17 [History] Docusate [Colace] 100 mg PO BID 06/22/17 [History] Ferrous Sulfate [Iron] 325 mg PO DAILY 06/22/17 [History] Lactulose 10 gm PO BID 06/22/17 [History] Melatonin 10 mg PO HS 06/22/17 [History] Metoprolol [Lopressor] 25 mg PO BID 06/22/17 [History] Quetiapine Fumarate [Seroquel] 200 mg PO TID 06/22/17 [History] Sertraline [Zoloft] 100 mg PO HS 06/22/17 [History] Atorvastatin Calcium [Lipitor] 20 mg PO HS 05/08/18 [History] Guaifenesin [Mucus Relief] 400 mg PO BID PRN 05/08/18 [History] Levothyroxine [Synthroid] 50 mcg PO QAM 05/08/18 [History] Omeprazole [PriLOSEC] 20 mg PO DAILY 05/08/18 [History] risperiDONE [RisperDAL] 1 mg PO HS 05/08/18 [History] levoFLOXacin [Levaquin] 750 mg PO DAILY 5 Days #5 tablet 05/10/18 [Rx] Allergies/Adverse Reactions: Allergy/AdvReac Type Severity Reaction Status Date / Time No Known Allergies Allergy Verified 05/08/18 17:35 Date of admission: 05/08/18 23:34 Primary care physician: Carey Cleary CNP Consults: 05/09/18 12:04 Consult to Nurse Navigator [CONS] Routine Comment: Pneumonia Discharging clinician: Brandt Ballesteros Anticipated date of discharge: 05/11/18 - Constitutional Vitals: Temp Pulse Resp BP Pulse Ox 97.9 F 75 16 116/82 91 05/11/18 06:36 05/11/18 06:36 05/11/18 06:36 05/11/18 06:36 05/11/18 06:36 Exam: VSS Gen: Morbidly obese, pleasant, normal speech HEENT: not cyanotic, not pale, moist oral mucosa Chest: No chest wall tenderness Resp: Rhonchi, worse in MIKE. No wheezing Heart: S1, S2, RRR, no m/g/r Abdomen: Obese, not tender, no palpably enlarged organs Extremities: No edema Neuro: AAOX3, no gross deficits Psych: Appropriate affect - Patient Status Disposition: Home, Self-Care Condition: Good Functional capacity at discharge: independent ambulation Overall status at discharge: patient is progressing back to baseline - Discharge Instructions Follow Up With: Carye Cleary, BILL CHECKER [Primary Care Provider] - 05/17/18 11:00 am - Diet and Activity Activity: resume usual activities as tolerated Diet: low fat, low cholesterol, low salt diet
[2018-05-11] MEDS: Divalproex (24 HR) 500 MG TABLET PO SCH (15:03)
[2018-05-11 23:59] LABS: Valproate Free 20 ug/mL (7-23); Valproate Total 92 ug/mL (50-125)
[2018-05-12 08:09] LABS: Valproate % Free 22 % (5-18)
== END 2018-05-11 15:49 | disposition home or self-care (01) ==
LOC: 2NENU 19:14 → EMEROOARM 19:14 → SUATTDRO 23:34 → 2NENU 05-09 00:22
PROVIDERS: ADMIT Internal Medicine; ATTEND Internal Medicine

== ENCOUNTER 2019-06-30 10:32 | Inpatient (IN) ==
[2019-06-30 12:18] LABS: Basophils % 0.5 %; Eosinophils # 0.4 K/mcL (0.0-0.6); Eosinophils % 5.2 %; Hematocrit 39.8 % (35.3-44.9); Hemoglobin 12.7 g/dL (11.5-15.4); Immature Granulocytes % 0.4 % (0-4); Lymphocytes # 1.6 K/mcL (0.6-4.6); Lymphocytes % 21.3 %; Mean Corpuscular HGB Conc 31.9 g/dL (31.6-35.5); Mean Corpuscular Hemoglobin 30.9 pg (28.0-33.3); Mean Corpuscular Volume 96.8 fL (83.0-100.0); Mean Platelet Volume 10.6 fL (9.4-12.4); Monocytes # 0.6 K/mcL (0.0-1.3); Monocytes % 7.4 %; Neutrophils # 4.9 K/mcL (1.6-8.9); Platelet Count 165 K/mcL (140-400); Red Blood Count 4.11 M/mcL (3.82-4.97); Red Cell Distribution Width 13.4 % (11.5-14.5); Segmented Neutrophils % 65.2 %; White Blood Count 7.5 K/mcL (4.3-11.1)
[2019-06-30 12:21] LABS: Prothrombin Time 11.4 Seconds (9.4-12.1)
[2019-06-30 12:24] LABS: Activated Partial Thrombo Time 32.2 Seconds (26.0-36.0)
[2019-06-30 12:36] LABS: Alanine Aminotransferase 21 Units/L (7-52); Albumin 4.2 g/dL (3.5-5.7); Albumin/Globulin Ratio 1.6 (1.1-2.2); Alkaline Phosphatase 69 Units/L (34-104); Aspartate Amino Transferase 16 Units/L (13-39); BUN/Creatinine Ratio 31 (6-26); Bilirubin,Total 0.3 mg/dL (0.3-1.0); Blood Urea Nitrogen 22 mg/dL (6-20); Calcium 9.7 mg/dL (8.6-10.3); Carbon Dioxide 27 mEq/L (23-29); Chloride 104 mEq/L (98-107); Globulin 2.7 g/dL (2.4-3.5); Glucose 116 mg/dL (70-105); Osmolality,Calculated 290 (280-300); Potassium 4.2 mEq/L (3.5-5.1); Sodium 138 mEq/L (136-145); Total Protein 6.9 g/dL (6.4-8.9); Troponin I < 0.03 ng/mL (< 0.04); eGFR For African Americans > 60 (> 60); eGFR For Non-African Americans > 60 (> 60)
[2019-06-30] MEDS ORDERED: Ondansetron 4 MG/2 ML VIAL IVP PRN (14:28)
[2019-06-30] MEDS ORDERED: Acetaminophen 325 MG TABLET PO PRN (14:28)
[2019-06-30] MEDS ORDERED: Naloxone 0.4 MG/ML INJ IVP PRN (14:28)
[2019-06-30 15:46] LABS: Ethanol < 10 mg/dL (Less than 10); Valproate 64 mcg/mL (50-100)
[2019-06-30] MEDS: Aspirin Enteric Coated 81 MG Tablet PO SCH (16:48)
[2019-06-30] MEDS: QUEtiapine Fumarate 100 MG TABLET PO SCH ×2 (16:48→21:51)
[2019-06-30] MEDS ORDERED: Perflutren Lipid Microsphere 1.3 ML in 0.9 % Sodium Chloride 8.7 ML IVP ONE (17:52)
[2019-06-30 20:57] LABS: Amphetamine Screen,Urine Negative ng/mL (Cutoff=1000); Barbiturate Screen,Urine Negative ng/mL (Cutoff=200); Benzodiazepines Screen,Urine Negative ng/mL (Cutoff=200); Cannabinoid Screen,Urine Negative ng/mL (Cutoff = 50); Cocaine Screen,Urine Negative ng/mL (Cutoff= 300); Opiate Screen,Urine Negative ng/mL (Cutoff=300); Phencyclidine Screen,Urine Negative ng/mL (Cutoff=25)
[2019-06-30] MEDS ORDERED: risperiDONE 1 MG TABLET PO SCH (21:00)
[2019-06-30] MEDS: Lactulose Oral Soln 20 GM/30 ML UDC PO SCH (21:51)
[2019-07-01 02:52] LABS: Chol/HDL Ratio 5.2 (0-4.9)
[2019-07-01 03:05] LABS: Thyroid Stimulating Hormone 6.219 mcIU/mL (0.340-5.600)
[2019-07-01 03:16] LABS: Folate 8.8 ng/mL (3.0-16.0)
[2019-07-01] MEDS: QUEtiapine Fumarate 100 MG TABLET PO SCH ×2 (07:48→13:55)
[2019-07-01] MEDS: Aspirin Enteric Coated 81 MG Tablet PO SCH (07:48)
[2019-07-01] MEDS: Lactulose Oral Soln 20 GM/30 ML UDC PO SCH (07:48)
[2019-07-01 08:51] LABS: Estimated Average Glucose 140 mg/dl
[2019-07-01] MEDS ORDERED: Cholecalciferol (D-3) 1,000 UNIT (25MCG) TABLET PO SCH (09:00)
[2019-07-01 10:50] VITALS: BP 128/80
[2019-07-01] MEDS ORDERED: Isovue-370 500 ML BOTTLE IVP ONE (12:53)
[2019-07-01] MEDS ORDERED: Divalproex (24 HR) 500 MG TABLET PO SCH (14:00)
[2019-07-01] MEDS ORDERED: D5% in Water 1,000 ML IVC PRN (14:56)
[2019-07-01] MEDS ORDERED: *HR* Dextrose 50 % in Water (Syg) 50 ML SYRINGE IVP PRN (14:56)
[2019-07-01] MEDS ORDERED: Dextrose Gel 15 GM/37.5 ML TUBE PO PRN ×2 (14:56)
[2019-07-01] MEDS ORDERED: Insulin LISPRO 300 UNITS/3 ML VIAL SQ SCH ×2 (16:30→21:00)
[2019-07-01] MEDS ORDERED: *HR* Heparin 5,000 UNIT/ML VIAL IVP PRN ×2 (16:56)
[2019-07-01] MEDS ORDERED: Heparin 25,000 UNIT/250 ML D5W 25,000 UNIT/250 ML IV.SOLN IVC SCH (17:00)
[2019-07-01] MEDS ORDERED: risperiDONE 0.25 MG TABLET PO SCH (21:00)
== END 2019-07-01 17:58 | disposition short-term general hospital (02) ==
LOC: EMEROOARM 10:32 → 3BNU 10:32 → SUATTDRO 14:28 → 3BNU 16:20
PROVIDERS: ADMIT Internal Medicine; ATTEND Internal Medicine

== ENCOUNTER 2019-11-19 12:26 | Observation (INO) ==
[2019-11-19] MEDS ORDERED: Isovue-370 500 ML BOTTLE IVP ONE (13:17)
[2019-11-19 13:45] LABS: Hematocrit 37.1 % (35.3-44.9); Hemoglobin 11.8 g/dL (11.5-15.4); Mean Corpuscular HGB Conc 31.8 g/dL (31.6-35.5); Mean Corpuscular Hemoglobin 30.4 pg (28.0-33.3); Mean Corpuscular Volume 95.6 fL (83.0-100.0); Mean Platelet Volume 10.3 fL (9.4-12.4); Platelet Count 184 K/mcL (140-400); Red Blood Count 3.88 M/mcL (3.82-4.97); Red Cell Distribution Width 13.6 % (11.5-14.5); White Blood Count 6.6 K/mcL (4.3-11.1)
[2019-11-19] MEDS ORDERED: Divalproex (24 HR) 500 MG TABLET PO SCH (14:00)
[2019-11-19 14:06] LABS: Alanine Aminotransferase 59 Units/L (7-52); Albumin 4.1 g/dL (3.5-5.7); Albumin/Globulin Ratio 1.6 (1.1-2.2); Alkaline Phosphatase 72 Units/L (34-104); Aspartate Amino Transferase 28 Units/L (13-39); BUN/Creatinine Ratio 19 (6-26); Bilirubin,Direct 0.1 mg/dL (0.0-0.2); Bilirubin,Indirect 0.1 mg/dL (0.0-1.0); Bilirubin,Total 0.2 mg/dL (0.3-1.0); Blood Urea Nitrogen 12 mg/dL (6-20); Calcium 8.7 mg/dL (8.6-10.3); Carbon Dioxide 28 mEq/L (23-29); Chloride 105 mEq/L (98-107); Globulin 2.5 g/dL (2.4-3.5); Glucose 115 mg/dL (70-105); Osmolality,Calculated 289 (280-300); Potassium 4.6 mEq/L (3.5-5.1); Sodium 139 mEq/L (136-145); Total Protein 6.6 g/dL (6.4-8.9); eGFR For African Americans > 60 (> 60); eGFR For Non-African Americans > 60 (> 60)
[2019-11-19 15:14] LABS: Bacteria,Urine Few per hpf (None-Few); Bilirubin,Urine Negative (Negative); Blood,Urine Trace (Negative); Clarity,Urine Clear (Clear); Color,Urine Light-Yellow (Yellow); Glucose,Urine (UA) Normal (Normal); Ketones,Urine Negative (Negative); Leukocyte Esterase,Urine Negative (Negative); Mucus,Urine Few per lpf (None-Few); Nitrite,Urine Negative (Negative); Protein,Urine Negative (Neg-Trace); RBC,Urine 0-3 per hpf (0-3); Specific Gravity,Urine 1.016 (1.010-1.025); Squamous Epithelial Cell,Urine Few per hpf (None-Few); WBC,Urine 0-3 per hpf (0-3)
[2019-11-19] MEDS ORDERED: Naloxone 0.4 MG/ML INJ IVP PRN (16:03)
[2019-11-19] MEDS ORDERED: Ondansetron 4 MG/2 ML VIAL IVP PRN (16:03)
[2019-11-19] MEDS ORDERED: Acetaminophen 325 MG TABLET PO PRN (16:03)
[2019-11-19 16:12] LABS: Adenovirus Not Detected (Not Detect); Bordetella Pertussis Not Detected (Not Detect); Chlamydophila pneumoniae Not Detected (Not Detect); Coronavirus 229E Not Detected (Not Detect); Coronavirus HKU1 Not Detected (Not Detect); Coronavirus NL63 Not Detected (Not Detect); Coronavirus OC43 Not Detected (Not Detect); Human Metapneumovirus Not Detected (Not Detect); Human Rhinovirus/Enterovirus Not Detected (Not Detect); Influenza A Subtype 2009 H1 Not Detected (Not Detect); Influenza B Not Detected (Not Detect); Mycoplasma pneumoniae Not Detected (Not Detect); Parainfluenza Virus 1 Not Detected (Not Detect); Parainfluenza Virus 2 Not Detected (Not Detect); Parainfluenza Virus 3 Not Detected (Not Detect); Parainfluenza Virus 4 Not Detected (Not Detect); Respiratory Syncytial Virus Not Detected (Not Detect)
[2019-11-19 16:13] LABS: SARS-CoV-2 Not Detected (Not Detect)
[2019-11-19 16:36] LABS: Ethanol < 10 mg/dL (Less than 10)
[2019-11-19 17:05] LABS: Amphetamine Screen,Urine Negative ng/mL (Cutoff=1000); Barbiturate Screen,Urine Negative ng/mL (Cutoff=200); Benzodiazepines Screen,Urine Negative ng/mL (Cutoff=200); Cannabinoid Screen,Urine Negative ng/mL (Cutoff = 50); Cocaine Screen,Urine Negative ng/mL (Cutoff= 300); Opiate Screen,Urine Negative ng/mL (Cutoff=300); Phencyclidine Screen,Urine Negative ng/mL (Cutoff=25)
[2019-11-19] MEDS: Ringers Solution, Lactated 1,000 ML IVC SCH (19:15)
[2019-11-19] MEDS: Lactulose Oral Soln 20 GM/30 ML UDC PO SCH (21:34)
[2019-11-19] MEDS: QUEtiapine Fumarate 100 MG TABLET PO SCH (21:34)
[2019-11-19] MEDS: Aspirin Enteric Coated 81 MG Tablet PO SCH (21:35)
[2019-11-20 02:30] LABS: Basophils % 0.6 %; Eosinophils # 0.5 K/mcL (0.0-0.6); Eosinophils % 8.1 %; Hematocrit 36.2 % (35.3-44.9); Hemoglobin 11.4 g/dL (11.5-15.4); Immature Granulocytes % 0.3 % (0-4); Lymphocytes % 30.5 %; Mean Corpuscular HGB Conc 31.5 g/dL (31.6-35.5); Mean Corpuscular Hemoglobin 30.6 pg (28.0-33.3); Mean Corpuscular Volume 97.3 fL (83.0-100.0); Mean Platelet Volume 10.5 fL (9.4-12.4); Monocytes # 0.5 K/mcL (0.0-1.3); Monocytes % 7.3 %; Neutrophils # 3.5 K/mcL (1.6-8.9); Platelet Count 189 K/mcL (140-400); Red Blood Count 3.72 M/mcL (3.82-4.97); Red Cell Distribution Width 13.6 % (11.5-14.5); Segmented Neutrophils % 53.2 %; White Blood Count 6.6 K/mcL (4.3-11.1)
[2019-11-20 02:49] LABS: Alanine Aminotransferase 53 Units/L (7-52); Albumin 3.8 g/dL (3.5-5.7); Albumin/Globulin Ratio 1.6 (1.1-2.2); Alkaline Phosphatase 67 Units/L (34-104); Aspartate Amino Transferase 24 Units/L (13-39); BUN/Creatinine Ratio 20 (6-26); Bilirubin,Total 0.2 mg/dL (0.3-1.0); Blood Urea Nitrogen 13 mg/dL (6-20); Carbon Dioxide 28 mEq/L (23-29); Chloride 103 mEq/L (98-107); Cholesterol 144 mg/dL (< 200); Globulin 2.4 g/dL (2.4-3.5); Glucose 109 mg/dL (70-105); HDL Cholesterol 29 mg/dL (40-59); LDL Cholesterol,Calculated 77 mg/dL (< 100); Osmolality,Calculated 291 (280-300); Potassium 4.3 mEq/L (3.5-5.1); Sodium 140 mEq/L (136-145); Total Protein 6.2 g/dL (6.4-8.9); Triglycerides 191 mg/dL (< 150); eGFR For African Americans > 60 (> 60); eGFR For Non-African Americans > 60 (> 60)
[2019-11-20] MEDS: Ringers Solution, Lactated 1,000 ML IVC SCH (05:42)
[2019-11-20] MEDS: QUEtiapine Fumarate 100 MG TABLET PO SCH (06:37)
[2019-11-20 07:50] VITALS: BP 122/81
[2019-11-20] MEDS: Aspirin Enteric Coated 81 MG Tablet PO SCH (08:47)
[2019-11-20] MEDS: Lactulose Oral Soln 20 GM/30 ML UDC PO SCH (08:48)
[2019-11-20 08:51] LABS: Estimated Average Glucose 140 mg/dl; Hemoglobin A1C 6.5 %
[2019-11-20] MEDS ORDERED: Cholecalciferol (D-3) 1,000 UNIT (25MCG) TABLET PO SCH (09:00)
== END 2019-11-20 10:18 | disposition home or self-care (01) ==
LOC: EMEROOARM 12:26 → 3BNU 12:26 → SUATTDRO 16:23 → 3BNU 17:36
PROVIDERS: ADMIT Family Medicine; ATTEND Internal Medicine

== ENCOUNTER 2020-06-27 21:04 | Inpatient (IN) ==
[2020-06-27] MEDS ORDERED: Isovue-370 500 ML BOTTLE IVP ONE (21:21)
[2020-06-27 21:41] LABS: Basophils % 0.5 %; Eosinophils # 0.4 K/mcL (0.0-0.6); Eosinophils % 4.7 %; Hematocrit 40.2 % (35.3-44.9); Hemoglobin 13.1 g/dL (11.5-15.4); Immature Granulocytes % 0.3 % (0-4); Lymphocytes % 26.1 %; Mean Corpuscular HGB Conc 32.6 g/dL (31.6-35.5); Mean Platelet Volume 10.5 fL (9.4-12.4); Monocytes # 0.6 K/mcL (0.0-1.3); Monocytes % 8.2 %; Neutrophils # 4.7 K/mcL (1.6-8.9); Platelet Count 173 K/mcL (140-400); Red Blood Count 4.23 M/mcL (3.82-4.97); Red Cell Distribution Width 14.3 % (11.5-14.5); Segmented Neutrophils % 60.2 %; White Blood Count 7.8 K/mcL (4.3-11.1)
[2020-06-27 21:54] LABS: INR 1.1
[2020-06-27 21:57] LABS: Activated Partial Thrombo Time 27.4 Seconds (26.0-36.0)
[2020-06-27 22:02] LABS: Alanine Aminotransferase 68 Units/L (7-52); Albumin 4.4 g/dL (3.5-5.7); Albumin/Globulin Ratio 1.6 (1.1-2.2); Alkaline Phosphatase 68 Units/L (34-104); Aspartate Amino Transferase 37 Units/L (13-39); BUN/Creatinine Ratio 37 (6-26); Bilirubin,Total 0.3 mg/dL (0.3-1.0); Blood Urea Nitrogen 28 mg/dL (6-20); Calcium 9.2 mg/dL (8.6-10.3); Carbon Dioxide 28 mEq/L (23-29); Chloride 103 mEq/L (98-107); Globulin 2.7 g/dL (2.4-3.5); Glucose 106 mg/dL (70-105); Osmolality,Calculated 296 (280-300); Potassium 3.9 mEq/L (3.5-5.1); Sodium 140 mEq/L (136-145); Total Protein 7.1 g/dL (6.4-8.9); Troponin I < 0.03 ng/mL (< 0.04); Valproate 78 mcg/mL (50-100); eGFR For African Americans > 60 (> 60); eGFR For Non-African Americans > 60 (> 60)
[2020-06-28] MEDS ORDERED: Melatonin 3 MG TABLET PO PRN (00:41)
[2020-06-28] MEDS ORDERED: Ondansetron 4 MG/2 ML VIAL IVP PRN (00:41)
[2020-06-28] MEDS ORDERED: Naloxone 0.4 MG/ML INJ IVP PRN (00:41)
[2020-06-28 05:09] LABS: Basophils % 0.3 %; Eosinophils # 0.4 K/mcL (0.0-0.6); Eosinophils % 5.8 %; Hematocrit 37.1 % (35.3-44.9); Hemoglobin 11.9 g/dL (11.5-15.4); Immature Granulocytes % 0.3 % (0-4); Lymphocytes # 2.3 K/mcL (0.6-4.6); Mean Corpuscular HGB Conc 32.1 g/dL (31.6-35.5); Mean Corpuscular Hemoglobin 30.4 pg (28.0-33.3); Mean Corpuscular Volume 94.9 fL (83.0-100.0); Mean Platelet Volume 10.6 fL (9.4-12.4); Monocytes # 0.5 K/mcL (0.0-1.3); Monocytes % 7.2 %; Neutrophils # 3.6 K/mcL (1.6-8.9); Platelet Count 159 K/mcL (140-400); Red Blood Count 3.91 M/mcL (3.82-4.97); Red Cell Distribution Width 14.3 % (11.5-14.5); Segmented Neutrophils % 52.4 %; White Blood Count 6.9 K/mcL (4.3-11.1)
[2020-06-28 05:15] LABS: INR 1.1; Prothrombin Time 13.2 Seconds (9.4-12.1)
[2020-06-28 05:33] LABS: Alanine Aminotransferase 59 Units/L (7-52); Albumin 3.9 g/dL (3.5-5.7); Albumin/Globulin Ratio 1.6 (1.1-2.2); Alkaline Phosphatase 59 Units/L (34-104); Aspartate Amino Transferase 31 Units/L (13-39); BUN/Creatinine Ratio 35 (6-26); Bilirubin,Total 0.3 mg/dL (0.3-1.0); Blood Urea Nitrogen 23 mg/dL (6-20); Calcium 8.9 mg/dL (8.6-10.3); Carbon Dioxide 26 mEq/L (23-29); Chloride 104 mEq/L (98-107); Chol/HDL Ratio 4.3 (0-4.9); Cholesterol 136 mg/dL (< 200); Globulin 2.4 g/dL (2.4-3.5); Glucose 85 mg/dL (70-105); HDL Cholesterol 32 mg/dL (40-59); LDL Cholesterol,Calculated 78 mg/dL (< 100); Osmolality,Calculated 291 (280-300); Potassium 3.8 mEq/L (3.5-5.1); Sodium 139 mEq/L (136-145); Total Protein 6.3 g/dL (6.4-8.9); Triglycerides 129 mg/dL (< 150); Troponin I < 0.03 ng/mL (< 0.04); eGFR For African Americans > 60 (> 60); eGFR For Non-African Americans > 60 (> 60)
[2020-06-28 07:02] LABS: Estimated Average Glucose 128 mg/dl; Hemoglobin A1C 6.1 %
[2020-06-28] MEDS: QUEtiapine Fumarate 100 MG TABLET PO SCH ×3 (08:46→21:18)
[2020-06-28] MEDS: Lactulose Oral Soln 20 GM/30 ML UDC PO SCH ×2 (08:47→21:19)
[2020-06-28] MEDS: Nystatin POWDER 30 GM BOTTLE TP SCH ×2 (09:49→21:19)
[2020-06-28] MEDS: Acetaminophen 325 MG TABLET PO PRN ×2 (14:37→21:16)
[2020-06-28] MEDS: Divalproex (24 HR) 500 MG TABLET PO SCH (14:38)
[2020-06-28] MEDS ORDERED: risperiDONE 0.25 MG TABLET PO SCH (21:00)
[2020-06-29 06:51] VITALS: BP 109/76
[2020-06-29] MEDS: QUEtiapine Fumarate 100 MG TABLET PO SCH ×2 (07:27→14:47)
[2020-06-29] MEDS: Lactulose Oral Soln 20 GM/30 ML UDC PO SCH (08:43)
[2020-06-29] MEDS: Nystatin POWDER 30 GM BOTTLE TP SCH (08:44)
[2020-06-29] MEDS: Divalproex (24 HR) 500 MG TABLET PO SCH (14:48)
== END 2020-06-29 14:54 | disposition home health service (06) | DRG 47 ==
LOC: 3BNU 21:04 → EMEROOARM 21:04 → SUATTDRO 23:38 → 3BNU 06-28 00:13
PROVIDERS: ADMIT Internal Medicine; ATTEND Internal Medicine

== ENCOUNTER 2021-12-17 10:11 | Observation (INO) ==
[2021-12-17] MEDS ORDERED: *HR* FentaNYL (PF) 100 MCG/2 ML VIAL ONE (13:01)
[2021-12-17] MEDS ORDERED: *HR* Midazolam HCl 2 MG/2 ML VIAL ONE (13:01)
[2021-12-17] MEDS ORDERED: *HR* Propofol 200 MG/20 ML VIAL IVP ONE (13:01)
[2021-12-17] MEDS ORDERED: Ondansetron 4 MG/2 ML VIAL ONE (13:07)
[2021-12-17] MEDS ORDERED: Lidocaine -MPF 2% 5 ML VIAL ONE (13:07)
[2021-12-17] MEDS ORDERED: *HR* Succinylcholine 200 MG/10 ML VIAL IVP ONE (13:07)
[2021-12-17] MEDS ORDERED: Lidocaine HCL 4 ML Topical Solution (Laryng-O-Jet Kit Sterile Pak) TP ONE (13:07)
[2021-12-17] MEDS ORDERED: Lidocaine/EPI 1:100k 1% 20 ML VIAL ONE (13:23)
[2021-12-17] MEDS ORDERED: Oxymetazoline Nasal Spray Bottle 30ML NS ONE (13:24)
[2021-12-17] MEDS ORDERED: Ringers Solution, Lactated 1,000 ML IVC ONE (14:00)
[2021-12-17] MEDS ORDERED: *HR* FentaNYL (PF) 100 MCG/2 ML VIAL IVP PRN (14:06)
[2021-12-17] MEDS ORDERED: *HR* HYDROMORPHONE 2 MG/ML VIAL ONE (15:11)
[2021-12-17 16:06] VITALS: TEMP 97.5
[2021-12-17 16:15] VITALS: O2SAT 94
[2021-12-17 16:39] VITALS: BP 120/76; PULSE 87
[2021-12-17] MEDS ORDERED: *HR* HYDROcodone/Acet 5/325 mg TABLET PO ONE (16:44)
== END 2021-12-17 17:48 | disposition home or self-care (01) ==
LOC: EMEROOARM 10:11 → 3BNU 10:11 → EMEROOARM 10:11 → 3BNU 13:30 → EMEROOARM 13:45 → 3BNU 14:09
PROVIDERS: ADMIT Otolaryngology; ATTEND Otolaryngology